=== PATIENT | female | born 1945 | race Caucasian/White ===

== ENCOUNTER 2018-04-14 22:03 | Observation (INO) ==
[2018-04-14 22:10] VITALS: RESP 18
[2018-04-14] MEDS ORDERED: Sod Chloride 0.9% Inj 1,000 ML IV.SIG ONE (23:32)
--- NOTE | 2018-04-14 23:36 | ED ---
HPI General Chief complaint: Weakness Stated complaint: back pain/weakness Time Seen by Provider: 04/14/18 23:26 Source: patient Mode of arrival: ambulatory Limitations: no limitations History of Present Illness HPI narrative: 72yo F with PMH of anemia, HLD, depression and hernia repair presents to the ED with c/o generalized cramping since last night. Said it comes and goes and feels like brando horse but in her legs and sometimes in her back and arms as well. +Nausea. +Generalized weakness. Denies any trauma , fever, chest pain, vomiting, abdominal pain, focal weakness or numbness. Related Data Home Medications Medication Instructions Recorded Confirmed aspirin [Aspirin Low Dose] 81 mg PO DAILY 04/14/18 04/14/18 fluoxetine [Prozac] 40 mg PO DAILY 04/14/18 04/14/18 nortriptyline 25 mg PO HS 04/14/18 04/14/18 omeprazole 40 mg PO DAILY 04/14/18 04/14/18 rosuvastatin [Crestor] 10 mg PO DAILY 04/14/18 04/14/18 linaclotide [Linzess] 290 mcg PO DAILY 04/15/18 04/15/18 Allergies Allergy/AdvReac Type Severity Reaction Status Date / Time No Known Allergies Allergy Verified 04/14/18 22:20 Review of Systems ROS: all other systems reviewed are negative [facility] Medical History Medical History GERD (gastroesophageal reflux disease) (Acute) High cholesterol (Acute) Surgical History Surgical History Hx of hernia repair (Acute) Family History Family History Other No pertinent family history Social History Social History Substance History: No History of Abuse Second Hand Smoke Exposure: No Smoking Status: Unknown if ever smoked How Often Do You Have a Drink Containing Alcohol: Monthly or less Recent Travel in [facility] within the Last 8 Weeks: No Recent Out of Country Travel within the Last 8 Weeks: No Immunization History Tetanus Immunization: Unsure Hx Influenza Vaccine This Season: No Exam Narrative Exam Narrative: GENERAL: 72yo F not in distress. SKIN: Focused skin assessment warm/dry. HEAD: Atraumatic. Normocephalic. EYES: Pupils equal and round. No scleral icterus. No injection or drainage. ENT: No nasal bleeding or discharge. Mucous membranes pink and moist. NECK: Trachea midline. No JVD. CARDIOVASCULAR: Regular rate and rhythm. No murmur appreciated. RESPIRATORY: No accessory muscle use. Clear to auscultation. Breath sounds equal bilaterally. GASTROINTESTINAL: Abdomen soft, non-tender, nondistended. MUSCULOSKELETAL: No obvious deformities. No clubbing. No cyanosis. No edema. NEUROLOGICAL: Awake and alert. No obvious cranial nerve deficits. Motor grossly within normal limits in all extremities. Sensation equal bilaterally. Normal speech. PSYCHIATRIC: Appropriate mood and affect; insight and judgment normal. Course Initial Documented Vital Signs Temperature 97.3 F L 04/14/18 22:06 Pulse Rate 108 H 04/14/18 22:06 Respiratory Rate 18 04/14/18 22:06 Blood Pressure 109/58 L 04/14/18 22:06 Pulse Oximetry 99 04/14/18 22:06 Last Documented Vital Signs Temperature 96.5 F L 04/15/18 08:00 Pulse Rate 64 04/15/18 08:00 Respiratory Rate 18 04/15/18 08:00 Blood Pressure 118/64 04/15/18 08:00 Pulse Oximetry 97 04/15/18 08:00 Medical Decision Making [facility] Narrative Medical decision making narrative: 72yo F who is well appearing here with c/o generalized cramping since yesterday. Temp was initially documented as 97.3F but repeat temp is 97.9F in the exam room. HR borderline tachycardic and BP a little low so given NS IVF. Labs reviewed, mild leukocytosis at 14.6. H/H normal at 11.7/35.9. CPK normal at 148. K is low at 2.6. Replaced with 30mEq KCl PO, placed on gambling monitor. Magnesium level added. Hyponatremia at 129. BUN/creatinine is elevated at 41/1.70. Pt given NS IVF. EKG showed ST depression and no prior to compare. Denies any chest pain. Pt is from [place] and said she has no kidney problems. UA is still pending. Discussed with Dr. Willis and accepted to her service. Differential Diagnosis Differential Diagnosis: Hypokalemia vs. rhabdomyolysis vs. symptomatic anemia vs. anxiety Lab Data Result diagrams: 04/14/18 23:45 04/15/18 06:00 Lab Results 04/14/18 04/14/18 04/14/18 Range/Units 00:06 23:45 23:45 CBC w Diff Slide review pending WBC 14.6 H (4.0-11.0) th/mm3 RBC 4.74 (4.00-5.30) mil/mm3 Hgb 11.7 (11.6-15.3) gm/dL Hct 35.9 (35.0-46.0) % MCV 75.8 L (80.0-100.0) fL MCH 24.7 L (27.0-34.0) pg MCHC 32.6 (32.0-36.0) % RDW 15.8 (11.6-17.2) % Plt Count 358 (150-450) th/mm3 MPV 8.0 (7.0-11.0) fL Neut % (Auto) 84.0 H (16.0-70.0) % Lymph % (Auto) 11.0 (9.0-44.0) % [place] % (Auto) 4.1 (0.0-8.0) % Eos % (Auto) 0.4 (0.0-4.0) % Baso % (Auto) 0.5 (0.0-2.0) % Neut # (Auto) 12.2 H (1.8-7.7) th/mm3 Lymph # (Auto) 1.6 (1.0-4.8) th/mm3 [place] # (Auto) 0.6 (0.0-0.9) th/mm3 Eos # (Auto) 0.1 (0.0-0.4) th/mm3 Baso # (Auto) 0.1 (0.0-0.2) th/mm3 WBC Differential . Diff Scan Auto diff confirmed Differential Comment . Sodium 129 L (136-145) meq/L Potassium 2.6 L* (3.5-5.1) meq/L Chloride 96 L (98-107) meq/L Carbon Dioxide 21.9 (21.0-32.0) meq/L Anion Gap 11 (5-15) meq/L BUN 41 H (7-18) mg/dL Creatinine 1.70 H (0.50-1.00) mg/dL Estimated GFR 30 L (>89) mL/min Random Glucose 142 H (74-106) mg/dL Calcium 9.4 (8.5-10.1) mg/dL Magnesium (1.5-2.5) mg/dL Total Bilirubin 0.4 (0.2-1.0) mg/dL AST 29 (15-37) U/L ALT 34 (10-53) U/L Alkaline Phosphatase 78 (45-117) U/L Total Creatine Kinase 148 (26-192) U/L Troponin I (0.02-0.05) ng/mL Total Protein 8.6 H (6.4-8.2) g/dL Albumin 4.4 (3.4-5.0) g/dL Urine Color (Yellw/Straw) Urine Clarity (Clear) Urine pH (5.0-8.5) Ur Specific Call (1.002-1.035) Urine Protein (Neg-Trace) mg/dL Urine Glucose (UA) (Negative) mg/dL Urine Ketones (Negative) mg/dL Urine Occult Blood (Negative) Urine Nitrate (Negative) Urine Bilirubin (Negative) Urine Urobilinogen (Less than 2) mg/dL Ur Leukocyte Esterase (Negative) Urine WBC (0-5) /hpf Ur Squamous Epith Cells (0-5) /hpf Ur Renal Epithelial Cell (None) /hpf Urine Mucus (Occasional) /lpf Micro UA Comment 04/15/18 04/15/18 Range/Units 02:03 06:00 CBC w Diff WBC (4.0-11.0) th/mm3 RBC (4.00-5.30) mil/mm3 Hgb (11.6-15.3) gm/dL Hct (35.0-46.0) % MCV (80.0-100.0) fL MCH (27.0-34.0) pg MCHC (32.0-36.0) % RDW (11.6-17.2) % Plt Count (150-450) th/mm3 MPV (7.0-11.0) fL Neut % (Auto) (16.0-70.0) % Lymph % (Auto) (9.0-44.0) % [place] % (Auto) (0.0-8.0) % Eos % (Auto) (0.0-4.0) % Baso % (Auto) (0.0-2.0) % Neut # (Auto) (1.8-7.7) th/mm3 Lymph # (Auto) (1.0-4.8) th/mm3 [place] # (Auto) (0.0-0.9) th/mm3 Eos # (Auto) (0.0-0.4) th/mm3 Baso # (Auto) (0.0-0.2) th/mm3 WBC Differential Diff Scan Differential Comment Sodium 135 L (136-145) meq/L Potassium 3.4 L D (3.5-5.1) meq/L Chloride 104 D (98-107) meq/L Carbon Dioxide 23.1 (21.0-32.0) meq/L Anion Gap 8 (5-15) meq/L BUN 33 H (7-18) mg/dL Creatinine 1.40 H (0.50-1.00) mg/dL Estimated GFR 37 L (>89) mL/min Random Glucose 99 (74-106) mg/dL Calcium 7.9 L D (8.5-10.1) mg/dL Magnesium 2.3 (1.5-2.5) mg/dL Total Bilirubin (0.2-1.0) mg/dL AST (15-37) U/L ALT (10-53) U/L Alkaline Phosphatase (45-117) U/L Total Creatine Kinase 99 (26-192) U/L Troponin I Less than 0.02 L (0.02-0.05) ng/mL Total Protein (6.4-8.2) g/dL Albumin (3.4-5.0) g/dL Urine Color Yellow (Yellw/Straw) Urine Clarity Clear (Clear) Urine pH 6.0 (5.0-8.5) Ur Specific Call 1.010 (1.002-1.035) Urine Protein Trace (Neg-Trace) mg/dL Urine Glucose (UA) Negative (Negative) mg/dL Urine Ketones Negative (Negative) mg/dL Urine Occult Blood Negative (Negative) Urine Nitrate Negative (Negative) Urine Bilirubin Negative (Negative) Urine Urobilinogen 0.2 (Less than 2) mg/dL Ur Leukocyte Esterase Trace H (Negative) Urine WBC 0-5 (0-5) /hpf Ur Squamous Epith Cells 0-5 (0-5) /hpf Ur Renal Epithelial Cell 1-5 H (None) /hpf Urine Mucus Few H (Occasional) /lpf Micro UA Comment Culture not ind ECG Data EKG Prior to Arrival: No Attestation: I personally reviewed and interpreted this ECG as follows: Interpretation: NSR 67bpm. Normal axis. Mild ST depression. No prior to compare. Discharge Plan Discharge Disposition Patient Disposition: 30 Still Patient Discharge Condition Condition: Good Discharge Order Discharge Orders: Discharge Order (Routine); Ordered 04/15/18 Ordered By: Kylee Fernandez Discharge Details Anticipated Discharge Date: 04/15/18 Diagnosis: Acute hypokalemia, ANJANA (acute kidney injury) Physicians Team ED Provider: Umu Mercado Attending Provider: Analia Shah Status ED Status: Left Department Discharge Information Discharge Date/Time: 04/15/18 08:03
[2018-04-14 23:56] LABS: Baso # (Auto) 0.1 th/mm3 (0.0-0.2); Baso % (Auto) 0.5 % (0.0-2.0); Eos # (Auto) 0.1 th/mm3 (0.0-0.4); Eos % (Auto) 0.4 % (0.0-4.0); Hematocrit 35.9 % (35.0-46.0); Hemoglobin 11.7 gm/dL (11.6-15.3); Lymph # (Auto) 1.6 th/mm3 (1.0-4.8); Mean Corpuscular HGB Conc 32.6 % (32.0-36.0); Mean Corpuscular Hemoglobin 24.7 pg (27.0-34.0); Mean Corpuscular Volume 75.8 fL (80.0-100.0); Mono # (Auto) 0.6 th/mm3 (0.0-0.9); Mono % (Auto) 4.1 % (0.0-8.0); Neut # (Auto) 12.2 th/mm3 (1.8-7.7); Platelet Count 358 th/mm3 (150-450); Red Blood Count 4.74 mil/mm3 (4.00-5.30); Red Cell Distribution Width 15.8 % (11.6-17.2); White Blood Count 14.6 th/mm3 (4.0-11.0)
[2018-04-15 00:57] LABS: Alanine Aminotransferase 34 U/L (10-53); Albumin 4.4 g/dL (3.4-5.0); Alkaline Phosphatase 78 U/L (45-117); Anion Gap 11 meq/L (5-15); Aspartate Aminotransferase 29 U/L (15-37); Blood Urea Nitrogen 41 mg/dL (7-18); Calcium 9.4 mg/dL (8.5-10.1); Carbon Dioxide 21.9 meq/L (21.0-32.0); Chloride 96 meq/L (98-107); Glomerular Filtration Rate 30 mL/min (>89); Glucose,Random 142 mg/dL (74-106); Potassium 2.6 meq/L (3.5-5.1); Sodium 129 meq/L (136-145); Total Protein 8.6 g/dL (6.4-8.2)
[2018-04-15 02:30] LABS: Bilirubin,Urine Negative (Negative); Clarity,Urine Clear (Clear); Color,Urine Yellow (Yellw/Straw); Glucose,Urine (UA) Negative (Negative); Leukocyte Esterase,Urine Trace (Negative); Nitrite,Urine Negative (Negative); Urobilinogen,Urine 0.2 mg/dL (Less than 2)
[2018-04-15] MEDS: Potassium Chlor 20 mEq Premix 20 MEQ/100 ML PIGGYBACK IV.SIG SCH ×2 (02:41→04:59)
[2018-04-15 02:43] LABS: Mucus,Urine Few /lpf (Occasional); Squamous Epithelial Cell,Urine 0-5 /hpf (0-5); WBC,Urine 0-5 /hpf (0-5)
[2018-04-15] MEDS ORDERED: ALPRAZolam 0.5 MG Tablet PO ONE (03:00)
[2018-04-15 06:52] LABS: Anion Gap 8 meq/L (5-15); Blood Urea Nitrogen 33 mg/dL (7-18); Calcium 7.9 mg/dL (8.5-10.1); Carbon Dioxide 23.1 meq/L (21.0-32.0); Chloride 104 meq/L (98-107); Glomerular Filtration Rate 37 mL/min (>89); Glucose,Random 99 mg/dL (74-106); Magnesium 2.3 mg/dL (1.5-2.5); Potassium 3.4 meq/L (3.5-5.1); Sodium 135 meq/L (136-145)
[2018-04-15 07:05] LABS: Creatine Kinase 99 U/L (26-192)
--- NOTE | 2018-04-15 08:36 | P.HP ---
History of Present Illness Primary Care Physician: Connor Mota Chief Complaint: Generalized weakness History of Present Illness: This is a pleasant 72-year-old female patient with a known medical history of sent to the ED with complaints of generalized weakness as well as lower extremity cramping. Upon presentation patient's potassium was 2.6. Creatinine 1.7. She states that the symptoms started roughly 3 days ago, especially at night laying in bed. She states that her leg cramps come and go. She states that she has been having increasing thirst as well as dry mouth. She denies any recent fever, chills, cough, shortness of breath, abdominal pain, nausea, vomiting, diarrhea dysuria. Upon presentation, EKG was done and reviewed showing sinus rhythm no ST changes. Creatinine is improved overnight to 1.4 with IV hydration. Potassium supplementation given and improved to 3.4. All symptoms have resolved overnight. Denies any continued nausea and weakness. Cramping is resolved. Advised patient that with increased thirst as well as increased urination, and elevated random glucose to 146, she is advised to follow-up with PCP. Hemoglobin A1c has been ordered and will be followed with PCP. - Diagnosis (1) Acute hypokalemia (2) ANJANA (acute kidney injury) (3) Elevated random blood glucose level Review of Systems All other systems reviewed negative except as stated in HPI [facility] - History History Provided By: Patient, Family Member - Medical History Medical History: Medical History (Last Updated 04/14/18 @ 22:27 by Tam Cortes RN) GERD (gastroesophageal reflux disease) High cholesterol - Surgical History Surgical History: Surgical History (Last Updated 04/14/18 @ 22:27 by Tam Cortes RN) Hx of hernia repair - Family History Family History: Family History (Last Updated 04/15/18 @ 13:11 by Kylee Fernandez) Other No pertinent family history - Tobacco History Second Hand Smoke Exposure: No Tobacco Use In Past 30 Days: No Smoking Status: Unknown if ever smoked - Alcohol History How Often Do You Have a Drink Containing Alcohol: Monthly or less - Substance Use History Substance History: No History of Abuse - Travel History Recent Travel in the [place] Within the Last 8 Weeks: No Recent Travel Out of the Country Within the Last 8 Weeks: No - Immunization History Tetanus Immunization: Unsure Hx Influenza Vaccine This Season: No Medications and Allergies Active Medications: Active Medications Aspirin (Ecotrin) 325 mg PO DAILY [facility] Atorvastatin Calcium (Lipitor) 20 mg PO DAILY [facility] Fluoxetine HCl (Prozac) 40 mg PO DAILY [facility] Nortriptyline HCl (Pamelor) 25 mg PO HS [facility] Ondansetron HCl (Zofran Inj) 4 mg IV.PUSH Q6H PRN PRN Reason: NAUSEA OR VOMITING Pantoprazole Sodium (Protonix) 40 mg PO DAILY [facility] Pt Own (Linaclotide [Linzess] 290 Mcg) Capsule 1 each PO DAILY [facility] Sodium Chloride (Ns Inj) 2 ml IV.FLUSH BID [facility] Sodium Chloride (Ns Inj) 2 ml IV.FLUSH UNSCH PRN PRN Reason: FLUSH AFTER USING IV ACCESS Allergies Allergy/AdvReac Type Severity Reaction Status Date / Time No Known Allergies Allergy Verified 04/14/18 22:20 Home Medications Medication Instructions Recorded Confirmed Type aspirin [Aspirin Low Dose] 81 mg PO DAILY 04/14/18 04/14/18 History fluoxetine [Prozac] 40 mg PO DAILY 04/14/18 04/14/18 History nortriptyline 25 mg PO HS 04/14/18 04/14/18 History omeprazole 40 mg PO DAILY 04/14/18 04/14/18 History rosuvastatin [Crestor] 10 mg PO DAILY 04/14/18 04/14/18 History linaclotide [Linzess] 290 mcg PO DAILY 04/15/18 04/15/18 History Exam Vital signs: Vital Signs 04/14/18 22:06 04/14/18 22:25 04/15/18 00:33 Temperature 97.3 F L 97.3 F L 97.9 F Pulse Rate 108 H 100 H 70 Respiratory Rate 18 18 18 Blood Pressure 109/58 L 109/58 L 146/77 H Pulse Oximetry 99 99 100 04/15/18 02:20 04/15/18 04:20 04/15/18 06:16 Temperature Pulse Rate 72 71 69 Respiratory Rate 18 18 18 Blood Pressure 128/72 112/70 102/65 Pulse Oximetry 99 99 99 04/15/18 07:24 Temperature Pulse Rate 72 Respiratory Rate 18 Blood Pressure 106/58 L Pulse Oximetry Intake & Output 04/14/18 04/15/18 04/15/18 18:59 06:59 18:59 Intake Total 1100 / 1100 Balance 1100 / 1100 Weight 75.8 kg Intake: IV 1100 / 1100 KCl 20 mEq Premix Inj 20 meq In 100 / 100 100 ml @ 50 mls/hr IV.SIG Q2H MICHELLE Rx#:[id number] NS Inj 1,000 ML @ Wide Open IV. 1000 / 1000 SIG BOLUS ONE Rx#:[id number] Narrative: GENERAL: Well-developed, well-nourished patient in NAD. SKIN: Warm and dry. No rash. HEAD: Normocephalic. Atraumatic. EYES: Pupils equal and round. No scleral icterus. No injection or drainage. ENT: No nasal bleeding or discharge. Mucous membranes pink and moist. NECK: Supple. Trachea midline. CARDIOVASCULAR: Regular rate and rhythm. S1, S2 noted. No murmur appreciated. RESPIRATORY: No accessory muscle use. Clear to auscultation. Breath sounds equal bilaterally. GASTROINTESTINAL: Abdomen soft, non-tender, nondistended. Normoactive bowel sounds x4. MUSCULOSKELETAL: No obvious deformities. Extremities without clubbing, cyanosis , or edema. NEUROLOGICAL: Awake and alert. No obvious cranial nerve deficits. Motor grossly within normal limits. 5/5 muscle strength in bilateral upper and lower extremities. Normal speech. PSYCHIATRIC: Appropriate mood and affect; insight and judgment normal. Results - Labs CBC & Chem 7: 04/14/18 23:45 04/15/18 06:00 Labs: Laboratory Results - last 24 hr 04/14/18 04/14/18 04/14/18 00:06 23:45 23:45 CBC w Diff Slide review pending WBC 14.6 H RBC 4.74 Hgb 11.7 Hct 35.9 MCV 75.8 L MCH 24.7 L MCHC 32.6 RDW 15.8 Plt Count 358 MPV 8.0 Neut % (Auto) 84.0 H Lymph % (Auto) 11.0 [place] % (Auto) 4.1 Eos % (Auto) 0.4 Baso % (Auto) 0.5 Neut # (Auto) 12.2 H Lymph # (Auto) 1.6 [place] # (Auto) 0.6 Eos # (Auto) 0.1 Baso # (Auto) 0.1 WBC Differential . Diff Scan Auto diff confirmed Differential Comment . Sodium 129 L Potassium 2.6 L* Chloride 96 L Carbon Dioxide 21.9 Anion Gap 11 BUN 41 H Creatinine 1.70 H Estimated GFR 30 L Random Glucose 142 H Calcium 9.4 Magnesium Total Bilirubin 0.4 AST 29 ALT 34 Alkaline Phosphatase 78 Total Creatine Kinase 148 Troponin I Total Protein 8.6 H Albumin 4.4 Urine Color Urine Clarity Urine pH Ur Specific [place] Urine Protein Urine Glucose (UA) Urine Ketones Urine Occult Blood Urine Nitrate Urine Bilirubin Urine Urobilinogen Ur Leukocyte Esterase Urine WBC Ur Squamous Epith Cells Ur Renal Epithelial Cell Urine Mucus Micro UA Comment 04/15/18 04/15/18 02:03 06:00 CBC w Diff WBC RBC Hgb Hct MCV MCH MCHC RDW Plt Count MPV Neut % (Auto) Lymph % (Auto) [place] % (Auto) Eos % (Auto) Baso % (Auto) Neut # (Auto) Lymph # (Auto) [place] # (Auto) Eos # (Auto) Baso # (Auto) WBC Differential Diff Scan Differential Comment Sodium 135 L Potassium 3.4 L D Chloride 104 D Carbon Dioxide 23.1 Anion Gap 8 BUN 33 H Creatinine 1.40 H Estimated GFR 37 L Random Glucose 99 Calcium 7.9 L D Magnesium 2.3 Total Bilirubin AST ALT Alkaline Phosphatase Total Creatine Kinase 99 Troponin I Less than 0.02 L Total Protein Albumin Urine Color Yellow Urine Clarity Clear Urine pH 6.0 Ur Specific [place] 1.010 Urine Protein Trace Urine Glucose (UA) Negative Urine Ketones Negative Urine Occult Blood Negative Urine Nitrate Negative Urine Bilirubin Negative Urine Urobilinogen 0.2 Ur Leukocyte Esterase Trace H Urine WBC 0-5 Ur Squamous Epith Cells 0-5 Ur Renal Epithelial Cell 1-5 H Urine Mucus Few H Micro UA Comment Culture not ind Caprini VTE Risk Assessment Caprini VTE Risk Assessment: Moderate/High Risk (score >= 2) Caprini Risk Assessment Model: Point Value = 1 Point Value = 2 Point Value = 3 Point Value = 5 Age 41-60 Minor surgery BMI > 25 kg/m2 Swollen legs Varicose veins or History of unexplained or recurrent spontaneous Oral contraceptives or hormone replacement Sepsis (< 1 month) Serious lung disease, including pneumonia (< 1 month) Abnormal pulmonary function Acute myocardial infarction Congestive heart failure (< 1 month) History of inflammatory bowel disease Medical patient at bed rest Age 61-74 Arthroscopic surgery Major open surgery (> 45 min) Laparoscopic surgery (> 45 min) Malignancy Confined to bed (> 72 hours) Immobilizing plaster cast Central venous access Age >= 75 History of VTE Family history of VTE Factor V Leiden Prothrombin [id number] Lupus anticoagulant Anticardiolipin antibodies Elevated serum homocysteine Heparin-induced thrombocytopenia Other congenital or acquired thrombophilia Stroke (< 1 month) Elective arthroplasty Hip, pelvis, or leg fracture Acute spinal cord injury (< 1 month) Prophylaxis Regimen: Total Risk Factor Score Risk Level Prophylaxis Regimen 0-1 Low Early ambulation 2 Moderate Order ONE of the following: *Sequential Compression Device (SCD) *Heparin 5000 units SQ BID 3-4 Higher Order ONE of the following medications: *Heparin 5000 units SQ TID *Enoxaparin/Lovenox 40 mg SQ daily (WT < 150 kg, CrCl > 30 mL/min) *Enoxaparin/Lovenox 30 mg SQ daily (WT < 150 kg, CrCl > 10-29 mL/min) *Enoxaparin/Lovenox 30 mg SQ BID (WT < 150 kg, CrCl > 30 mL/min) AND/OR *Sequential Compression Device (SCD) 5 or more Highest Order ONE of the following medications: *Heparin 5000 units SQ TID (Preferred with Epidurals) *Enoxaparin/Lovenox 40 mg SQ daily (WT < 150 kg, CrCl > 30 mL/min) *Enoxaparin/Lovenox 30 mg SQ daily (WT < 150 kg, CrCl > 10-29 mL/min) *Enoxaparin/Lovenox 30 mg SQ BID (WT < 150 kg, CrCl > 30 mL/min) AND *Sequential Compression Device (SCD) Assessment and Plan - Assessment (1) Acute hypokalemia Code(s): E87.6 - Hypokalemia Status: Acute Plan: Patient presented with potassium 2.6. Replacement was ordered overnight and potassium improved to 3.4 today. Given additional dose of 30 MBq potassium p.o. supplementation. Patient also had associated nausea and generalized weakness which have resolved. Patient is tolerating p.o. intake well with no abdomen, nausea or vomiting. Patient was placed on cardiac telemetry overnight, reviewed with no reports of any arrhythmias. EKG normal. (2) ANJANA (acute kidney injury) Code(s): N17.9 - Acute kidney failure, unspecified Status: Acute Plan: Patient denies any history of chronic kidney disease. Creatinine 1.7 upon presentation is improved overnight with IV fluids 1.4. Patient advised follow- up PCP to obtain follow-up BMP. (3) Elevated random blood glucose level Code(s): R73.09 - Other abnormal glucose Status: Acute Plan: Random glucose 146 upon presentation. Patient states she does have borderline diabetes. Hemoglobin A1c has been ordered although I will not wait for this result, patient is advised to follow-up with PCP for results and management of possible diabetes. She does admit to increased thirst and urination. Patient advised to limit carbohydrates and lifestyle modifications including weight loss and activity. Patient is understandable of the plan. Will discharge home since symptoms have improved and resolved. All questions answered, daughter at bedside as well and updated. - Plan Discharge home today. Follow-up with PCP. Follow-up hemoglobin A1c. Patient is understanding of plan. Heart healthy diet. Activity as tolerated. Discharge plan with prescriptions as written.
[2018-04-15] MEDS ORDERED: LINACLOTIDE 290 MCG PO SCH (09:00)
[2018-04-15] MEDS ORDERED: FLUoxetine 20 MG Capsule PO SCH (09:00)
[2018-04-15 09:09] VITALS: BP 118/64; PULSE 64; TEMP 96.5; O2SAT 97
--- NOTE | 2018-04-15 14:28 | ECG ---
Date Performed: 04/15/2018 Time Performed: 00:18:30 PTAGE: 72 years EKG: Sinus rhythm NONSPECIFIC ST & T-WAVE ABNORMALITY BORDERLINE ECG NO PREVIOUS TRACING DOCTOR: Sree Castro Interpretating Date/Time 04/15/2018 14:27:28
--- NOTE | 2018-04-15 14:28 | ECG ---
Date Performed: 04/15/2018 Time Performed: 05:47:22 PTAGE: 72 years EKG: Sinus rhythm NONSPECIFIC T-WAVE ABNORMALITY BORDERLINE ECG Since the PREVIOUS TRACING , no significant change noted PREVIOUS TRACIN04/15/2018 00.18 DOCTOR: Sree Castro Interpretating Date/Time 04/15/2018 14:27:37
[2018-04-15 17:12] LABS: Hemoglobin A1c 5.9 % (4.3-6.0)
[2018-04-15] MEDS ORDERED: Nortriptyline 25 MG Capsule PO SCH (21:00)
== END 2018-04-15 11:11 | disposition home or self-care (01) ==
LOC: PHED 22:03 → PH3 22:03 → PHEDA 22:03 → PHEDH 04-15 05:19 → PH3 04-15 07:54
PROVIDERS: ADMIT Hospitalist; ATTEND Hospitalist